=== PATIENT | female | born 1960 | race Caucasian/White ===

== ENCOUNTER 2022-07-17 16:08 | Outpatient (CLI) | payer OTHER, SELFPAY ==
[2022-07-17 19:22] LABS: Magnesium 2.2 mg/dL (1.6-2.3)
[2022-07-17 19:37] LABS: Vitamin D 25 Hydroxy 41.8 ng/mL
[2022-07-20 04:36] LABS: Progesterone <0.2 ng/mL (***)
[2022-07-25 18:09] LABS: Testosterone Free 1.9 pg/mL (0.1-6.4); Testosterone Total 27 ng/dL (2-45)
[2022-07-28 16:37] LABS: Estrogen 101.6 pg/mL
== END 2022-07-17 16:09 | disposition home or self-care (01) ==
LOC: ANHGOSHLAB 16:09
PROVIDERS: PCP Family Medicine; Visit Provider Nurse Practitioner Family
DX: M79.606 Pain in leg, unspecified (principal); R53.83 Other fatigue
CPT/HCPCS: 36415; 82306; 82672; 83735; 84144; 84402; 84403

== ENCOUNTER → 2022-07-17 16:18 | Outpatient (CLI) | payer OTHER, SELFPAY ==
--- NOTE | ~2022-07-17 | XR_ITS ---
XR lumbar spine 2-3V DATE: 07/17/2022 16:27 INDICATION: Bilateral leg pain. No injury. TECHNIQUE: AP, lateral, coned lateral lumbosacral views COMPARISON: None FINDINGS: There is mild lumbar levoscoliosis. No fracture or bone destruction is evident. The included lower thoracic and lumbar pedicles are intac t. There is mild to moderate degenerative disc disease. No spondylolisthesis.. The sacroiliac joints are intact IMPRESSION: [id number] degenerative disc disease Reviewed, dictated and finalized at location L. IMPRESSION: [id number] degenerative disc disease
== END ==
PROVIDERS: PCP Family Medicine; Visit Provider Nurse Practitioner Family
DX: M51.36 Other intervertebral disc degeneration, lumbar region (principal)
CPT/HCPCS: 72100

== ENCOUNTER 2022-07-23 12:31 | Outpatient (RCR) | payer OTHER, SELFPAY ==
--- NOTE | 2022-07-23 16:08 | OPREHPOC ---
Outpatient Therapy Plan of Care This is a Multidisciplinary Plan of Care that may contain components documented by all disciplines (PT, OT, and ST.) PT Problem 1 PT Problem #1 Knowledge Deficit PT Goal 1 Goal Pt to be IND with issued HEP Target Visit 8 PT Problem 2 PT Problem #2 Pain PT Goal 1 Goal Pt to report neck pain no greater than 3/10 in the last week Target Visit 8 PT Goal 2 Goal Pt to report 75% improvement in overall symptoms. Target Visit 8 PT Problem 3 PT Problem #3 Impaired Sensation PT Goal 1 Goal Pt to improve 50% in sensation.
--- NOTE | 2022-07-23 16:08 | PTOPEVAL1 ---
Assessment and note entered by Bess Guerrero, PT, DPT Evaluation Information Assessment Status Evaluation Diagnosis joint pain Onset 6 month Subjective Information Pt states the thinks she had a reaction to a medication she took back in October. She states it started out as all over body aches. She states with pain medication it went away for a while and has recently come back. She rates the worst pain in the prior and right before bed. She reports sporadic numbness and burning throughout her BLEs. She states she went to the chiropractor to try to treat this, she states this made it worse and she has had neck and shoulder pain since then. She has chronic low back pain, her largest complaint in the altered sensations. Pt reports her altered sensations are getting slowly better as she increases her activity. Reported Pain Level Pain Score 0: Self Report Assessment PT Clinical Summary Mesfin presents to therapy today for her initial evaluation with a diagnosis of fernando leg pain, back pain, and other chronic pain. Today she reports burning and numbness sensations throughout her BLE especially in her feet as well as pain of her neck and upper back. She demonstrates lumbar and LE ROM that is WNL, good strength, and decline impaired light touch sensations. She has postural deviations including rounded shoulders and increased thoracic kyphosis in sitting. Skilled therapy services are indicated to address core and scapula strength to improve body mechanics and decrease possible neutral compression, desensitization techniques will also be attempted. Plan of Care Interventions Electrical Stimulation,Hot Pack/Cold Pack,Manual Therapy,Neuro Re-education,Patient/Caregiver Educati,Therapeutic Activities,Therapeutic Exercise PT Services Indicated Yes Treatment Frequency and 1x/wk for 8 wks Duration These treatments will address the objective and functional deficits as defined above. The patient will be advanced safely and appropriately in order for the patient to progress towards his/her prior level of function. Additional exercises will be introduced and as well as a comprehensive home exercise program upon discharge, if needed, ?to ensure carryover of functional gains achieved in the clinic. This treatment plan has been reviewed and agreement upon by the patient.
--- NOTE | 2022-08-08 11:35 | PCPTNOTE ---
Patient called & cancelled scheduled appointment this date due to being ill.
--- NOTE | 2022-08-08 14:26 | PCPTNOTE ---
Pt cancelled this AM due to illness.
--- NOTE | 2022-08-22 08:23 | PCPTNOTE ---
Patient no showed and no called this date. Called and left voicemail.
--- NOTE | 2022-08-30 09:49 | PTOPDC ---
Assessment and note entered by Bess Guerrero, PT, DPT Evaluation Information Assessment Status Discharge - Pt Not Present Diagnosis joint pain Onset 6 month Subjective Information Pt called and cancelled all of her remaining appointments. Assessment PT Clinical Summary Mesfin completed 1 visits of physical therapy from 08/22/22 to 08/29/22. She will be discharged at this time. If she need additional therapy at a later time she will need a new order. Plan of Care PT Services Indicated No
--- NOTE | 2022-09-12 10:23 | PCPTNOTE ---
Patient canceled appointment on September 11. No reason given.
== END 2022-10-04 10:57 | disposition home or self-care (01) ==
LOC: ANHGOSHPT 12:31
PROVIDERS: PCP Family Medicine; Visit Provider Nurse Practitioner Family
DX: M79.604 Pain in right leg (principal); M79.605 Pain in left leg; M54.50 Low back pain, unspecified; M25.50 Pain in unspecified joint; G89.29 Other chronic pain
CPT/HCPCS: 97110; 97112; 97162; 99199

== ENCOUNTER 2023-05-27 12:48 | Outpatient (CLI) | payer OTHER, SELFPAY ==
[2023-05-27 14:23] LABS: Basophils Absolute Auto 0.1 K/mm3 (0.0-0.1); Basophils Percent Auto 0.9 % (0.2-1.2); Eosinophils Absolute Auto 0.2 K/mm3 (0-0.3); Eosinophils Percent Auto 2.4 % (0-4.4); Hematocrit 44.8 % (37.0-47.0); Hemoglobin 13.9 g/dL (12.0-15.0); Immature Granulocyte Absolute 0.01 K/mm3 (0.00-0.031); Immature Granulocyte Percent A 0.2 % (0-0.5); Lymphocytes Absolute Auto 2.43 K/mm3 (0.9-3.2); Lymphocytes Percent Auto 38.1 % (18.3-44.2); Mean Corpuscular Hemoglobin 29.3 pg (26-34); Mean Corpuscular Volume 94.5 fl (80-100); Mean Platelet Volume 10.1 fl (7.4-10.4); Monocytes Absolute Auto 0.6 K/mm3 (0.1-0.6); Monocytes Percent Auto 8.8 % (2.6-8.5); Neutrophils Absolute Auto 3.2 K/mm3 (1.3-6.7); Neutrophils Percent Auto 49.6 % (45.5-73.1); Platelet Count Result 313 k/mm3 (150-375); Red Blood Count 4.74 M/mm3 (4.2-5.4); White Blood Count 6.4 K/mm3 (4.5-10.0)
[2023-05-27 14:25] LABS: Lactic Acid Reflex 1.1 mmol/L (0.7-2.0)
[2023-05-27 15:20] LABS: Alanine Aminotransferase 16 U/L (6-35); Albumin Level 4.8 g/dL (3.5-5.1); Alkaline Phosphatase 77 U/L (38-126); Anion Gap 8 mmol/L (4-12); Aspartate Amino Transferase 36 U/L (14-36); Bilirubin,Total 0.6 mg/dL (0.2-1.3); Blood Urea Nitrogen 16 mg/dL (7-17); Calcium 10.4 mg/dL (8.4-10.2); Carbon Dioxide 29 mmol/L (22-30); Chloride 104 mmol/L (98-107); Cholesterol 217 mg/dL (0-200); Creatine Kinase 89 U/L (30-135); Estimated Glomerular Filt Rate > 60; Glucose 106 mg/dL (65-110); HDL Direct 46 mg/dL; Magnesium 2.4 mg/dL (1.6-2.3); Sodium 141 mmol/L (137-145); Triglycerides 128 mg/dL (<150)
[2023-05-27 15:32] LABS: LDL Cholesterol Direct 126 mg/dL
[2023-05-27 15:57] LABS: Hemoglobin A1C 5.1 % (<5.7)
[2023-05-27 16:11] LABS: Vitamin B12 > 1000.0 pg/mL (239-931)
[2023-05-27 20:22] LABS: Vitamin D 25 Hydroxy 31.7 ng/mL
== END 2023-05-27 12:49 | disposition home or self-care (01) ==
LOC: ANHGOSHLAB 12:51
PROVIDERS: PCP Family Medicine; Visit Provider Nurse Practitioner Family
DX: Z00.00 Encounter for general adult medical examination without abnormal findings (principal); R53.83 Other fatigue; R73.03 Prediabetes; E55.9 Vitamin D deficiency, unspecified; E78.5 Hyperlipidemia, unspecified; E53.8 Deficiency of other specified B group vitamins; M25.50 Pain in unspecified joint; M79.10 Myalgia, unspecified site; M79.606 Pain in leg, unspecified; Z12.31 Encounter for screening mammogram for malignant neoplasm of breast
CPT/HCPCS: 36415; 80053; 80061; 82306; 82550; 82607; 83036; 83605; 83735; 85025

== ENCOUNTER 2023-07-03 10:06 | Outpatient (CLI) | payer OTHER, SELFPAY ==
[2023-07-03 20:26] LABS: Alanine Aminotransferase 15 U/L (6-35); Albumin Level 4.4 g/dL (3.5-5.1); Alkaline Phosphatase 67 U/L (38-126); Anion Gap 9 mmol/L (4-12); Aspartate Amino Transferase 29 U/L (14-36); Bilirubin,Total 0.6 mg/dL (0.2-1.3); Blood Urea Nitrogen 13 mg/dL (7-17); Calcium 9.6 mg/dL (8.4-10.2); Carbon Dioxide 28 mmol/L (22-30); Chloride 105 mmol/L (98-107); Estimated Glomerular Filt Rate > 60; Glucose 95 mg/dL (65-110); Magnesium 2.3 mg/dL (1.6-2.3); Parathyroid Intact 64.8 pg/mL (7.5-53.5); Potassium 4.3 mmol/L (3.4-5.0); Sodium 142 mmol/L (137-145)
== END 2023-07-03 10:07 | disposition home or self-care (01) ==
LOC: ANHGOSHLAB 10:08
PROVIDERS: PCP Family Medicine; Visit Provider Nurse Practitioner Family
DX: R79.89 Other specified abnormal findings of blood chemistry (principal); E83.52 Hypercalcemia
CPT/HCPCS: 36415; 80053; 83735; 83970

== ENCOUNTER 2023-09-27 14:14 | Outpatient (CLI) | payer OTHER, SELFPAY ==
--- NOTE | ~2023-09-27 | DEXA_ITS ---
Bone Density Report Name: JOLANTA BRO Age: 63 Sex: Female Ethnicity: White Date of : 1960 Indication: hyperparathyroidism; height loss; Referring Provider: SULLYMARY Study: Bone densitometry was performed. Exam Date: September 27, 2023 Accession number: [id number] Bone Density: Region BMD T-score Z-score Classification AP Spine(L1-L4) 1.124 0.7 2.2 Normal Femoral Neck (Left) 0.807 -0.4 1.0 Normal Total Hip (Left) 0.968 0.2 1.2 Normal Femoral Neck (Right) 0.787 -0.6 0.8 Normal Total Hip (Right) 0.962 0.2 1.2 Normal Total Hip Mean 0.965 0.2 1.2 Normal World Health Organization criteria for BMD impression classify patients as: Normal (T-score at or above -1.0), Osteopenia (T-score between -1.0 and -2.5), or Osteoporosis (T-score at or below -2.5). 10-year Fracture Risk: FRAX not reported because: All T-scores for Spine Total, Hip Total, Femoral Neck at or above -1.0 Previous Exams: Region Exam Age BMD T-score BMD Change BMD Change Date g/cm2 vs Baseline vs Previous AP Spine (L1-L4) 09/27/2023 63 1.124 0.7 -0.063 (-5.3%) -0.063 (-5.3%) 03/02/2017 57 1.187 1.3 Total Hip(Left) 09/27/2023 63 0.968 0.2 -0.073 (-7.0%) -0.073 (-7.0%) 03/02/2017 57 1.041 0.8 Total Hip(Right) 09/27/2023 63 0.962 0.2 -0.084 (-8.1%) -0.084 (-8.1%) 03/02/2017 57 1.047 0.9 *Denotes significance at 95% confidence level, LSC for AP Spine = 0.022 g/cm2, LSC for Total Hip = 0.027 g/cm2 Clinical Information Provided by Patient: Has the following medical conditions: Hyperparathyroidism Patient maximum height was 68 Menopause Age: 55 No regular weight bearing exercise Drinks caffeinated beverages Onset of menses at age 14 Number of children 2 Impression: The patient has normal bone mass. The BMD for the AP Spine (L1-L4) decreased, changing by -5.3% since the last DXA exam. The BMD for the Total Hip(Left) decreased, changing by -7.0% since the last DXA exam. The BMD for the Total Hip(Right) decreased, changing by -8.1% since the last DXA exam. Discussion: BONE DENSITY IS ABOVE THE MINIMUM DESIRABLE LEVEL AT ALL SKELETAL SITES TESTED. This patient?s bone mineral density is above the minimum desirable level (T-score -1.0 or better) at all sites measured. The patient should follow a healthful lifestyle (good nutrition with adequate calcium and vitamin D, and appropriate weight-bearing exercise). Follow-Up: Consider
--- NOTE | ~2023-09-27 | DEXA_ITS ---
Bone Density Report Name: JOLANTA BRO Age: 63 Sex: Female Ethnicity: White Date of : 1960 Indication: hyperparathyroidism; height loss; Referring Provider: SULLYMARY Study: Bone densitometry was performed. Exam Date: September 27, 2023 Accession number: [id number] Bone Density: Region BMD T-score Z-score Classification Total Forearm (Left) 0.467 -2.1 -0.7 1/3 Forearm (Left) 0.581 -1.9 -0.5 UD Forearm (Left) 0.345 -1.7 -0.7 World Health Organization criteria for BMD impression classify patients as: Normal (T-score at or above -1.0), Osteopenia (T-score between -1.0 and -2.5), or Osteoporosis (T-score at or below -2.5). Clinical Information Provided by Patient: Has the following medical conditions: Hyperparathyroidism Patient maximum height was 68 Menopause Age: 55 No regular weight bearing exercise Drinks caffeinated beverages Onset of menses at age 14 Number of children 2 Impression: The patient has low bone mass, based on the Left Third Radius T-score. Discussion: BONE DENSITY IS LOW AT ONE OR MORE SKELETAL SITES. This patient's lowest T-score is low at one or more skeletal sites. It meets the World Health Organization's (WHO) criteria for ?low bone mass? (T-score between -1.0 and -2.5). The patient's 10-year risk of fracture as calculated by FRAX is less than the threshold where pharmacological therapy is recommended by the National Osteoporosis Foundation (NOF). However, all treatment decisions require clinical judgment and consideration of individual patient factors, including patient preferences, comorbidities, previous drug use, risk factors not captured in the FRAX model (e.g., frailty, falls, vitamin D deficiency, increased bone turnover, interval significant decline in bone density) and possible under or overestimation of fracture risk by FRAX. The patient should follow a healthful lifestyle (good nutrition with adequate calcium and vitamin D, and appropriate weight-bearing exercise). Follow-Up: Consider repeating this study in 2 to 3 years to reassess this patient's status, or sooner if there is some new clinical indication. Reported by: LEONIDES on 09/27/2023 3:06:00 PM. Reviewed, dictated and finalized at location AMckay KERN
== END 2023-09-27 14:15 | disposition home or self-care (01) ==
LOC: ANHIMG 14:16
PROVIDERS: PCP Family Medicine; Visit Provider Internal Medicine Endocrinology, Diabetes & Metabolism
DX: E21.3 Hyperparathyroidism, unspecified (principal)
CPT/HCPCS: 77080; 77081

== ENCOUNTER 2023-11-01 15:04 | Outpatient (NON) | payer OTHER, SELFPAY | END 2023-11-01 15:05 | disposition home or self-care (01) | LOC: ANHGOSHLAB 15:05 | PROVIDERS: PCP Nurse Practitioner Family; Visit Provider Nurse Practitioner Family | DX: R39.9 Unspecified symptoms and signs involving the genitourinary system (principal) | CPT/HCPCS: 87086; 87088 ==

== ENCOUNTER 2023-11-11 13:28 | Outpatient (CLI) | payer OTHER, SELFPAY ==
--- NOTE | ~2023-11-11 | XR_ITS ---
3 VIEWS LUMBAR SPINE Ordering provider: Jessenia Martinez MD History: . M54.50 - Low back pain, unspecified . Comparison: July 17, 2022 FINDINGS: VERTEBRAL BODIES:Levoscoliosis. No visible fracture or subluxation. DISK SPACES: Narrowing of the disc L2-L3, L3-L4, L4-L5 and L5-S1. Multilevel facet joint disease. SOFT TISSUES: Atherosclerotic changes of the aorta. IMPRESSION: No acute osseous abnormality lumbar spine. Reviewed, dictated and finalized at location A.
== END 2023-11-11 13:29 | disposition home or self-care (01) ==
PROVIDERS: PCP Family Medicine; Visit Provider Family Medicine
DX: M54.50 Low back pain, unspecified (principal)
CPT/HCPCS: 72100

== ENCOUNTER 2024-03-09 14:21 | Outpatient (CLI) | payer OTHER, SELFPAY ==
--- NOTE | ~2024-03-09 | MM_ITS ---
EXAMINATION: MM screening [place] BI w dante HISTORY: Screening TECHNIQUE: Craniocaudal and mediolateral oblique 3-D tomosynthesis images were obtained and synthetic 2-D images were generated. CAD analysis was submitted and interpreted. COMPARISON: 03/02/2017 BREAST PARENCHYMAL COMPOSITION: Not dense: There are scattered areas of fibroglandular density. FINDINGS: There is no evidence of suspicious mass, calcification, or architectural distortion to sugg est malignancy in either breast. There has been no suspicious interval change. IMPRESSION: 1. No mammographic evidence of malignancy. 2. Recommend routine screening mammography in one year. BI-RADS Category 1: Negative Reviewed, dictated and finalized at location A. [employer]
== END 2024-03-09 14:22 | disposition home or self-care (01) ==
PROVIDERS: PCP Family Medicine; Visit Provider Family Medicine
DX: Z12.31 Encounter for screening mammogram for malignant neoplasm of breast (principal)
CPT/HCPCS: 77063; 77067

== ENCOUNTER 2024-04-23 09:18 | Outpatient (CLI) | payer OTHER, SELFPAY ==
[2024-04-23 14:32] LABS: Parathyroid Intact 42.3 pg/mL (14.5-75.2)
[2024-04-23 14:36] LABS: Free T4 Free Thyroxine 1.02 ng/dL (0.78-2.19); Vitamin D 25 Hydroxy 46.1 ng/mL
[2024-04-23 14:38] LABS: Alanine Aminotransferase 17 U/L (6-35); Albumin Level 4.4 g/dL (3.5-5.1); Alkaline Phosphatase 71 U/L (38-126); Anion Gap 8 mmol/L (4-12); Aspartate Amino Transferase 55 U/L (14-36); Bilirubin,Total 0.6 mg/dL (0.2-1.3); Blood Urea Nitrogen 15 mg/dL (7-17); Calcium 9.6 mg/dL (8.4-10.2); Carbon Dioxide 31 mmol/L (22-30); Chloride 103 mmol/L (98-107); Cholesterol 225 mg/dL (0-200); Estimated Glomerular Filt Rate > 60; Glucose 93 mg/dL (65-110); HDL Direct 45 mg/dL; Magnesium 2.1 mg/dL (1.6-2.3); Sodium 142 mmol/L (137-145); Triglycerides 152 mg/dL (<150)
[2024-04-23 16:09] LABS: LDL Cholesterol Direct 128 mg/dL
== END 2024-04-23 09:19 | disposition home or self-care (01) ==
LOC: ANHGOSHLAB 09:20
PROVIDERS: PCP Family Medicine; Visit Provider Nurse Practitioner Family
DX: E55.9 Vitamin D deficiency, unspecified (principal); Z88.0 Allergy status to penicillin; R79.89 Other specified abnormal findings of blood chemistry; R41.3 Other amnesia; E78.5 Hyperlipidemia, unspecified
CPT/HCPCS: 36415; 80053; 80061; 82306; 83735; 83970; 84439; 84443